=== PATIENT | male | born 2005 | race Caucasian/White ===

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

== ENCOUNTER 2025-07-14 07:16 | Emergency (ER) | payer OTHER, SELFPAY ==
[2025-07-14 07:18] VITALS: BP 136/83; PULSE 111; RESP 16; TEMP 37.3; O2SAT 97; BMI 24.4
--- NOTE | 2025-07-14 07:48 | EX.ED.DYSGE1 ---
HPI History of Present Illness Chief Complaint: General Illness Detail of Chief Complaint: Sick Informant: patient and parent Narrative Narrative: Patient presents to the emergency department with complaint of not feeling well for the last 4 days. Patient states that he works at [employer] and 4 nights ago developed chills 1 evening. By the next day he felt back to his baseline. The chills then returned the following evening. He said temperature at home up to 100.4. Had 2 episodes of diarrhea without blood in it. Denied vomiting. No significant cough or sore throat. Also about the same time he noticed few sores in the right upper gingiva and 1 sore in the left upper gingiva. He only has 1 sore now in the left upper gingiva. Denies dysuria urgency or frequency. Patient otherwise has no medical history. Also has an abrasion from some rust on his right hand. His last tetanus shot was in 2019. Patient also states that he has superficial rug manzanares to both knees. PFSH PFSH Medical History no medical history Home Medications ?Medication ?Instructions ?Recorded ?Last Taken ?Type NK 08/14/18 Unknown History Allergy/AdvReac Type Severity Reaction Status Date / Time No Known Allergies Allergy Verified 07/14/25 07:17 Family History no significant family his Surgical History no surgical history Social History (Updated 01/17/20 @ 15:43 by Jorge ELAM, PA) Smoking Status: Never smoker ROS ROS ED Review of Systems ROS Unobtainable: other Constitutional Constitutional ED: Reports chills, fever(s) and lethargy; Denies sweats or weight loss Eyes Eyes: Denies blurry vision, change in vision or diplopia ENT ENT ED: Reports other Details: Mouth sores ; Denies rhinorrhea or sore throat Cardiovascular Cardiovascular: Denies chest pain, orthopnea or racing heartbeat Respiratory/Chest Respiratory/Chest: Denies cough, dyspnea, dyspnea on exertion, orthopnea or sputum Gastrointestinal Gastrointestinal: Reports diarrhea; Denies abdominal pain, nausea or vomiting Genitourinary Genitourinary ED: Denies dysuria, hematuria or urinary frequency Musculoskeletal Musculoskeletal: Denies arthralgias, back pain, myalgias or neck pain Integumentary Denies abscess, Abrasions or rash Neurologic Neurologic: Denies headache(s) or weakness Psychiatric Psychiatric: Denies anxiety, depression or suicidal thoughts Endocrine Endocrinology: Denies polydipsia, polyphagia or polyuria Hematologic/Lymphatic Hematologic/Lymphatic: Denies easy bleeding, easy bruising or lymphadenopathy Allergic/Immunologic Allergic/Immunologic ED: Denies mouth swelling, tongue swelling or urticaria EXAM Physical Exam Const Vital Signs: 07/14/25 07:18 07/14/25 07:30 Temperature 99.1 F Temperature Source Oral Pulse Rate 111 H Respiratory Rate 16 Respiratory Effort Normal Non-Labored Blood Pressure 136/83 H Blood Pressure Mean 100 Pulse Ox 97 Oxygen Delivery Method Room Air Positive well nourished and well developed General Appearance ED: well developed and NAD HEENT Reports TM's clear and moist mucous membranes HEENT Narrative: Patient has solitary canker sore left upper gingiva that is healing. No other lesions in the mouth noted. normocephalic and atraumatic; Negative for trauma or tenderness Tympanic Membrane ED: Yes TM's clear Eyes PERRL and EOMs intact bilaterally General Eye ED: Negative for pale conjunctiva or scleral icterus Neck no lymphadenopathy, supple and no JVD General: Negative for tenderness Chest Wall inspection of chest normal and palpation of chest normal Chest: Negative for tenderness Resp normal respiratory effort and clear to auscultation bilaterally Effort and Inspection: Negative for respiratory distress or pain with movement Auscultation: Negative for rhonchi, wheezes or diminished lung sounds Cardio regular rate, regular rhythm, S1 normal heart sound, S2 normal heart sound and no murmurs Peripheral Pulses: pulses 2+ throughout GI normal to inspection, nondistended, normoactive bowel sounds, soft to palpation, non-tender, non-distended and no masses Back/Spine no CVA tenderness and no thoracic nor lumbar tenderness Extremity normal to inspection Extremity Narrative: Right hand-patient has superficial abrasion palmar aspect over fifth MCP joint. No cellulitic changes. Normal range of motion. Knees-patient has superficial dermal abrasion just inferior to the right and left patella. No cellulitic changes. Evaluation of both hands and feet reveal no rashes. General Extremety ED: Negative for edema General Extremity: Negative for edema Neuro oriented x3, CN's II-XII intact bilaterally, no sensory deficits noted and gait normal Sensorium / Orientation: awake, alert, oriented to person, oriented to place and oriented to time Motor Exam: strength 5/5 throughout and strength abnormal Psych mental status grossly normal Skin no rashes or lesions noted and no wounds MDM MDM MDM Narrative Medical decision making narrative: Patient presents with canker sore to left upper gingiva. He has had fever and chills and some diarrhea. Clinically he looks well. Suspect likely viral syndrome. Do not feel any further testing is indicated. Recommended supportive care. Will refer to primary care physician on-call for no doc for follow-up within next 5 to 7 days Discharge Plan Triage Chief Complaint: General Illness ED Provider: Gin Cates Dx/Rx/DC Orders Clinical Impression: Canker sore, Viral syndrome Instructions: ED Canker Sore, ED Viral Syndrome (Adult) Prescriptions: No Action NK Primary Care Provider: Mikey Mcdonough Referrals: Mikey Mcdonough MD [Primary Care Provider] - 5-7 Days Print Language: Cook Islander Disposition Disposition: Home, Self Care
[2025-07-14 07:57] VITALS: BP 136/83; PULSE 111; RESP 16; TEMP 37.3; O2SAT 97
== END 2025-07-14 07:58 | disposition home or self-care (01) ==
LOC: ED 07:55
PROVIDERS: Emergency Provider Emergency Medicine; Visit Provider Emergency Medicine
DX: B34.9 Viral infection, unspecified (principal); R19.7 Diarrhea, unspecified; R68.83 Chills (without fever); S60.511A Abrasion of right hand, initial encounter; X58.XXXA Exposure to other specified factors, initial encounter; K12.0 Recurrent oral aphthae; S80.211A Abrasion, right knee, initial encounter; S80.212A Abrasion, left knee, initial encounter
CPT/HCPCS: 99282